=== PATIENT | female | born 2000 | race Caucasian/White ===

== ENCOUNTER 2022-03-20 14:22 | Emergency (ER) | payer SELFPAY ==
[~2022-03-20] VITALS: Ht 170 cm; Wt 57.0 kg
--- NOTE | 2022-03-20 14:56 | ED Headache ---
General Chief Complaint: Head/Cervical Problems Stated Complaint: HEADACHES Nursing Triage Note: PT AMBULATORY TO ER. PT C/O TIMMONS X 1.5 WEEKS AGO. REPORTS VISUAL DISTURBANCES WITH TIMMONS. PT [facility], GIVEN SHOT OF TORADOL, REPORTS DID NOT HELP WITH HER PAIN. PT WAS ALSO TOLD SHE 'HAS SEVERAL BUMPS TO THE BACK OF MY HEAD', WAS TOLD BY CLINIC SHE NEEDED AN MRI BUT NEEDS PCP TO ORDER. History of Present Illness Date Seen by Provider: Mar 20, 2022 Time Seen by Provider: 14:55 Initial Comments Patient is a 21-year-old female who presents to the emergency department for evaluation of headaches for the last 1-1/2 weeks. Patient states the headaches are intermittent but frequent. She states the current headache has been lasting since yesterday. She was seen in the clinic yesterday where she was given an injection of some medicine that did not give her any improvement. She states she also has some "bumps on the back of my head." She is not sure if these are related to the headaches. Denies any vision loss, focal weakness/numbness, balance issues. Denies any history of frequent headaches in the past. States she does have sensitivity to light and loud noises. Allergies and Home Medications Allergies Coded Allergies: No Known Drug Allergies (Unverified , 03/20/22) Patient Home Medication List Home Medication List Reviewed: Yes Prochlorperazine Maleate (Compazine) 10 Mg Tablet, 10 MG PO Q8H PRN for HEADACHE Prescribed by: Dante Martin on 03/20/22 1525 Review of Systems Review of Systems Constitutional: no symptoms reported Eyes: No Symptoms Reported Ears, Nose, Mouth, Throat: no symptoms reported Respiratory: no symptoms reported Cardiovascular: no symptoms reported Gastrointestinal: no symptoms reported Genitourinary: no symptoms reported Musculoskeletal: no symptoms reported Skin: no symptoms reported Psychiatric/Neurological: See HPI, Headache Past Brmmoht-Dzftad-Hgzkej Hx Patient Social History Tobacco Use?: Yes Tobacco type used: Cigarettes Use of E-Cig and/or Vaping dev: No Substance use?: No Alcohol Use?: No Pt feels they are or have been: No Immunizations Up To Date First/Initial COVID19 Vaccinat: RECEIVED, UNK WHEN Second COVID19 Vaccination Zacarias: RECEIVED, UNK WHEN COVID19 Vaccine [employer]: MODERNA Past Medical History Last Menstrual Period: Mar 06, 2022 Physical Exam Vital Signs Vital Signs - First Documented 03/20/22 14:29 Temp 36.5 Pulse 96 Resp 18 B/P (MAP) 122/80 (94) Pulse Ox 100 O2 Delivery Room Air Capillary Refill : Height, Weight, BMI Height: '" Weight: lbs. oz. kg; 19.00 BMI Method: General Appearance: WD/WN, no apparent distress HEENT: PERRL/EOMI, normal ENT inspection, TMs normal, pharynx normal Neck: non-tender, full range of motion, supple, normal inspection Cardiovascular: regular rate, rhythm Respiratory: chest non-tender, lungs clear, normal breath sounds, no respiratory distress, no accessory muscle use Gastrointestinal: normal bowel sounds, non tender, soft Extremities: normal range of motion, non-tender, normal inspection, no pedal edema, no calf tenderness Skin: normal color, warm/dry Progress/Results/Core Measures Results/Orders My Orders Orders - DANTE MARTIN APRN Prochlorperazine Injection (Compazine In (03/20/22 15:00) Ketorolac Injection (Toradol Injection) (03/20/22 15:00) Diphenhydramine Tablet (Benadryl Tablet) (03/20/22 15:00) Medications Given in ED Vital Signs/I&O 03/20/22 03/20/22 14:29 15:41 Temp 36.5 36.2 Pulse 96 79 Resp 18 16 B/P (MAP) 122/80 (94) 131/72 Pulse Ox 100 100 O2 Delivery Room Air Room Air Blood Pressure Mean: 94 Progress Progress Note : Progress Note Patient is nontoxic and well-hydrated on exam. No focal neurologic deficits appreciated. Pupils equal round and reactive to light. Extraocular movements are intact. Strength is equal in all 4 extremities. She is ambulatory without ataxia. No indication for cross-sectional imaging of the head at this time. Patient states she had a negative test yesterday at the clinic and does not wish to have another. I informed her that some of the medications that we would give potentially have detrimental side effects if she was . She excepted these risks and verbalized understanding. She was given an int ermuscular injection of Compazine and ketorolac. She was given an oral dose of Benadryl. Discussed supportive care and anticipatory guidance. Follow-up with PCP. Return precautions for urgent symptomology discussed. Patient verbalized understanding. Departure Impression Primary Impression: Headache Qualified Codes: R51.9 - Headache, unspecified Disposition: HOME, SELF-CARE Condition: Stable Departure-Patient Inst. Decision time for Depature: 15:20 Referrals: NO,LOCAL PHYSICIAN (PCP/Family) Primary Care Physician Patient Instructions: Headache, Adult (DC) Scripts Prochlorperazine Maleate (Compazine) 10 Mg Tablet 10 MG PO Q8H PRN for HEADACHE for 5 Days, #15 TAB 0 Refills Prov: DANTE MARTIN APRN 03/20/22 DANTE MARTIN APRN Mar 20, 2022 14:56
[2022-03-20] MEDS ORDERED: KETOROLAC 30 MG/ML VIAL IM ONE (15:00)
[2022-03-20] MEDS ORDERED: PROCHLORPERAZINE 10 MG/2ML INJ (COMPAZINE) IM ONE (15:00)
[2022-03-20] MEDS ORDERED: diphenhydrAMINE 25 MG TAB (BENADRYL) PO ONE (15:00)
[2022-03-20] MEDS ORDERED: PROC-1 PO (15:25)
[2022-03-20 15:41] VITALS: BP 131/72
== END 2022-03-20 15:42 | disposition home or self-care (01) ==
LOC: EDUNIT# 14:22 → ER 14:26
DX: R51.9 Headache, unspecified (principal); F17.210 Nicotine dependence, cigarettes, uncomplicated
CPT/HCPCS: 99284